=== PATIENT | male | born 1970 | race Caucasian/White ===

== ENCOUNTER → 2017-07-14 | Outpatient (CLI) | payer OTHER ==
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
== END | disposition home or self-care (01) ==
LOC: SLEEP 10:55
PROVIDERS: ATTEND Internal Medicine
DX: G47.33 Obstructive sleep apnea (adult) (pediatric) (principal); E66.9 Obesity, unspecified; I10 Essential (primary) hypertension; E78.5 Hyperlipidemia, unspecified; Z98.890 Other specified postprocedural states; Z98.41 Cataract extraction status, right eye; Z98.42 Cataract extraction status, left eye; Z87.828 Personal history of other (healed) physical injury and trauma; Z68.33 Body mass index [BMI] 33.0-33.9, adult; Z79.899 Other long term (current) drug therapy
CPT/HCPCS: 99201

== ENCOUNTER → 2017-11-17 | Outpatient (CLI) | payer OTHER ==
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
== END | disposition home or self-care (01) ==
LOC: SLEEP 14:02
PROVIDERS: ATTEND Internal Medicine
DX: G47.33 Obstructive sleep apnea (adult) (pediatric) (principal); E66.9 Obesity, unspecified; I10 Essential (primary) hypertension; E78.5 Hyperlipidemia, unspecified; Z99.89 Dependence on other enabling machines and devices; Z79.899 Other long term (current) drug therapy; Z90.49 Acquired absence of other specified parts of digestive tract; Z98.42 Cataract extraction status, left eye

== ENCOUNTER → 2018-11-02 | Outpatient (CLI) | payer OTHER ==
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
== END | disposition home or self-care (01) ==
LOC: SLEEP 14:16
PROVIDERS: ATTEND Internal Medicine
DX: G47.33 Obstructive sleep apnea (adult) (pediatric) (principal); I10 Essential (primary) hypertension; E66.9 Obesity, unspecified; E78.5 Hyperlipidemia, unspecified; Z79.899 Other long term (current) drug therapy; Z99.89 Dependence on other enabling machines and devices; Z98.42 Cataract extraction status, left eye; Z98.41 Cataract extraction status, right eye; Z68.33 Body mass index [BMI] 33.0-33.9, adult; Z87.828 Personal history of other (healed) physical injury and trauma

== ENCOUNTER → 2023-01-12 | Outpatient (CLI) | payer OTHER ==
--- NOTE | 2023-01-12 17:51 | P.SLEEP ---
History of Present Illness DATE: 01/12/2023 CONSULTATION/NEW PATIENT EVALUATION HISTORY OF PRESENT ILLNESS/SLEEP-WAKE EVALUATION: 52 year old gentleman had been evaluated in the sleep center for possible obstructive sleep apnea hypopnea syndrome. Patient has history of CVA obstructive sleep apnea hypopnea syndrome, diagnosed in our institution. Last time I so patient in the office in October 2018. Patient continued to use his CPAP equipment every night. I checked CPAP unit. CPAP pressure is 14 cm of water. Usage is 100% of nights, average 7 hours per night. Leak is 10.1 L/m which is in normal range. Apnea hypopnea index is 2.0, which is normal. SLEEP SCHEDULE: Usually sleep schedule from 10 PM to 5 AM 7 days a week. FALLING ASLEEP: No problems with falling asleep. DURING SLEEP: No snoring while patient using CPAP. No nocturia. No history of hypnogogical hallucinations, sleep paralysis, or cataplexy. DURING THE DAY/WAKE STATE: Patient denied any significant excessive daytime sleepiness. [place] sleepiness scale is 7, which is normal. Usually patient doesn't take naps. PAST MEDICAL HISTORY: Hypertension, hyperlipidemia. PAST SURGICAL HISTORY: Polypectomy from larynx. MEDICATIONS: Amlodipine 10 mg once a day, simvastatin 40 mg once a day, aspirin 81 mg once a day, metoprolol 50 mg once a day, valsartan-hydrochloro thiazide 320-25 mg once a day, Lopid 600 mg twice a day. SOCIAL HISTORY: Negative for smoking or using alcohol. FAMILY HISTORY: Hypertension, diabetes, sleep apnea. REVIEW OF SYSTEMS: No snoring while using CPAP. No fevers. No double vision. No recent chest pain. No shortness of breath. No abdominal pain. No bleeding episodes. No blood in urine. No seizure episodes. PHYSICAL EXAMINATION: GENERAL: A pleasant patient without any distress. VITAL SIGNS: BP 132/70 , HR 63 , RR 12 , weight 222.4 pounds, height 5 foot 7 inches, body mass index 34.7 . HEENT: PERRLA, EOMI. Evaluation of oropharynx showed tongue protrudes midline, low position of soft palate Mallampati 4. NECK: Supple. No JVD. Thyroid is not palpable. [] inches in circumference. LUNGS: Clear to percussion and to auscultation. Good air exchange. No wheezing or rhonchi. HEART: S1, S2 regular. No murmurs, gallops or rubs. ABDOMEN: Soft and nontender. Bowel sounds are present. No organomegaly appreciated. EXTREMITIES: No clubbing or cyanosis. CIGAR BANDER HAND: Awake, alert, and oriented x3. Cranial nerves 2 to 7 intact. There is no fasciculation or atrophy noted. No focal deficits observed. ASSESSMENT: 1. Severe obstructive sleep apnea hypopnea syndrome. Patient demonstrated great compliance with treatment. Normal respiration on treatment with CPAP. 2. Obesity, BMI 34.7. 3. Hypertension. 4. Hyperlipidemia. 5 status post polypectomy from larynx in the past. 6 . Status post bilateral cataract surgery in 2013. PLAN: 1. Patient will continue to use CPAP equipment every night for the whole night 2. CPAP/BiPAP titration if sleep study confirms obstructive sleep apnea- hypopnea syndrome. 3. Preferable position during sleep on the side. 4. No driving if patient feels any sleepiness. Patient is aware of civil and criminal liability for unsafe driving. 5. Sleep hygiene with regular sleep time for at least 7.5-8 hours. 6. Watching and losing weight. 7. Prescription for all necessary CPAP supplies including mask, tube filters. 8. Follow-up visit in 6 months. Thank you very much for referring this patient for consultation. Sincerely, Azael Carrion MD, PhD, FAASM. Diplomat of [employer] Board [employer] Medicine, Sleep Medicine Board by [employer] Special[employer] Board of [employer] Medicine [employer] Police Officer of [facility] [place] Sleep Note - Sleep Note Sleep Note: Temperature: Pulse Rate: Respiratory Rate: Blood Pressure: SpO2: Height: Weight: BMI: Neck Circumference:
== END ==
LOC: 3 N SLEEP 15:03
PROVIDERS: ATTEND Internal Medicine
DX: G47.33 Obstructive sleep apnea (adult) (pediatric) (principal); E66.9 Obesity, unspecified; I10 Essential (primary) hypertension; E78.5 Hyperlipidemia, unspecified; Z98.890 Other specified postprocedural states; Z68.34 Body mass index [BMI] 34.0-34.9, adult; Z99.89 Dependence on other enabling machines and devices; Z79.899 Other long term (current) drug therapy
CPT/HCPCS: 99202

== ENCOUNTER → 2023-08-17 | Outpatient (CLI) | payer OTHER ==
[2023-08-17 10:57] VITALS: BP 131/75; PULSE 57; RESP 16; TEMP 97.9
--- NOTE | 2023-08-17 11:25 | P.PN ---
Subjective DATE: 08/17/2023 FOLLOW UP VISIT. Patient with obstructive sleep apnea hypopnea syndrome return to sleep center for follow-up visit. Information from previous visit have been reviewed. Patient is using PAP equipment every night for the whole night, getting PAP supplies in time. The patient does not have significant problems with the mask, PAP unit and humidification. [place] sleepiness scale is 5 , which is normal. I checked information from PAP unit. PAP unit pressure 14 cm H2O. Usage is 100% for more then 4 hours, average 7.7 hours per night. Leak is 34 l/m, which is in acceptable range. Apnea Hypopnea Index is 1.5, which is normal. CPAP unit is old, legs of cover for air filter was broken. MEDICATIONS:1. Amlodipine 10 mg once a day 2. Simvastatin 80 mg once a day 3. Aspirin 81 mg once a day 4. Metoprolol 50 mg once a day 5. Valsartanhydrochlorothiazide 320-25 mg once a day 6. Gemfibrozil 600 mg twice a day During physical exam: GENERAL: A pleasant patient without any distress. VITAL SIGNS: Please see below. HEENT: PERRLA, EOMI.low position of soft palate, Mallapati 4 . NECK: Supple. No JVD. LUNGS: Clear to percussion and to auscultation. Good air exchange. No wheezing or rhonchi. HEART: S1, S2 regular. ABDOMEN: Soft and nontender. Slightly obese EXTREMITIES: No clubbing or cyanosis. INSPECTOR TUBES: Awake, alert, and oriented x3. No focal deficit. Impressions: 1. Obstructive sleep apnea-hypopnea syndrome. Patient demonstrated great compliance with treatment, benefiting from treatment. 2. Obesity, BMI 35.2, patient increased weight on 3 pounds comparing with previous visit. 3. Hypertension. 4. Hyperlipidemia. 5. Status post bilateral cataract surgery. 6. Status post polypectomy from larynx in the past. Plan: 1. Continue using PAP equipment every night for the whole night. 2. CPAP unit is old, cover for air filter is broken. Prescription to replace CPAP unit was written. 3. PAP unit should stay lower then position of the head. 4. Advised patient to remove all remaining water from humidifier canister daily and make it dry after each usage. Refill canister with fresh distilled water before each usage. 5. Sleep hygiene with regular time in bed for at least 8 hours. 6. Precautions related to driving. No driving if feel any sleepiness. 7. I will maintain prescription for PAP supplies including mask, tube, filters. 8. Follow up visit in 1-3 months after patient will receive new CPAP unit or earlier if patient has any problems. 9. Watching and losing weight. Thank you very much for allowing me to participate in the management of your patient. Azael Carrion MD, PhD, FAASM. Diplomat of [place] Board of Sleep Medicine, Sleep Medicine Board by [place] Board of Internal Medicine Tester/Lift Trucker of [facility] [place] Objective - Vital Signs Vital signs: Vital Signs Temp 97.9 F 08/17/23 10:49 Pulse 57 L 08/17/23 10:49 Resp 16 08/17/23 10:49 BP 131/75 08/17/23 10:49 Pulse Ox 97 08/17/23 10:49 FiO2 Intake & Output 08/16/23 08/17/23 08/17/23 18:59 06:59 18:59 Weight 102.058 kg
== END ==
LOC: 3 N SLEEP 09:58
PROVIDERS: ATTEND Internal Medicine
DX: G47.33 Obstructive sleep apnea (adult) (pediatric) (principal); E66.9 Obesity, unspecified; I10 Essential (primary) hypertension; E78.5 Hyperlipidemia, unspecified; Z98.41 Cataract extraction status, right eye; Z98.42 Cataract extraction status, left eye; Z98.890 Other specified postprocedural states; Z99.89 Dependence on other enabling machines and devices; Z68.35 Body mass index [BMI] 35.0-35.9, adult; Z86.010 Personal history of colon polyps; Z79.899 Other long term (current) drug therapy
CPT/HCPCS: 99212

== ENCOUNTER → 2023-10-19 | Outpatient (CLI) | payer OTHER ==
--- NOTE | 2023-10-19 15:18 | P.PROGSL ---
Subjective DATE: 10/19/2023 FOLLOW UP VISIT. Patient with obstructive sleep apnea hypopnea syndrome return to sleep center for follow-up visit. This is first visit after patient received new CPAP unit. Information from previous visit have been reviewed. Patient is using PAP equipment every night for the whole night, getting PAP supplies in time. The patient does not have significant problems with the mask, PAP unit and humidification. [place] sleepiness scale is 4, which is normal. I checked information from PAP unit. PAP unit pressure 14 cm H2O. Usage is 100% for more then 4 hours, average 7 hours per night. Leak is 20.7 l/m, which is in acceptable range. Apnea Hypopnea Index is 2.1, which is normal. MEDICATIONS: Please see below During physical exam: GENERAL: A pleasant patient without any distress. VITAL SIGNS: Please see below weight 220.2 pounds. HEENT: PERRLA, EOMI.low position of soft palate, Mallapati 4 . NECK: Supple. No JVD. LUNGS: Clear to percussion and to auscultation. Good air exchange. No wheezing or rhonchi. HEART: S1, S2 regular. ABDOMEN: Soft and nontender. Slightly obese EXTREMITIES: No clubbing or cyanosis. WAFER FABRICATION TECHNICIAN: Awake, alert, and oriented x3. No focal deficit. Impressions: 1. Obstructive sleep apnea-hypopnea syndrome. Patient demonstrated great compliance with treatment, benefiting from treatment. 2. Hypertension. 3. Obesity. 4. Hyperlipidemia. 5. Status post polypectomy from larynx in the past. 6. Status post bilateral cataract surgery. Plan: 1. Continue using PAP equipment every night for the whole night. 2. To change air filter at least 1-2 times per month. 3. PAP unit should stay lower then position of the head. 4. Advised patient to remove all remaining water from humidifier canister daily and make it dry after each usage. Refill canister with fresh distilled water before each usage. 5. Sleep hygiene with regular time in bed for at least 8 hours. 6. Precautions related to driving. No driving if feel any sleepiness. 7. I will maintain prescription for PAP supplies including mask, tube, filters. 8. Watching and losing weight. 9. Follow up visit in 6 months or earlier if patient has any problems. Thank you very much for allowing me to participate in the management of your patient. Azael Carrion MD, PhD, FAASM. Diplomat of [place] [employer] Medicine, Sleep Medicine Board by [place] [employer] Medicine Long Haul Truck Driver of [facility] [place] Objective - Vital Signs Vital Signs: Vital Signs Temp 98.0 F 10/19/23 14:57 Pulse 70 10/19/23 14:57 Resp 16 10/19/23 14:57 BP 136/68 10/19/23 14:57 Pulse Ox 96 10/19/23 14:57 FiO2 Home Medications: Home Medications Medication Instructions Recorded Confirmed Type Aspirin [Adult Low Dose Aspirin EC] 81 mg PO 08/17/23 History Metoprolol Succinate (ER) [Toprol 50 mg PO DAILY 08/17/23 08/17/23 History Xl] Simvastatin [Zocor] 80 mg PO 08/17/23 History Valsartan/Hydrochlorothiazide 320 mg PO DAILY 08/17/23 08/17/23 History [Valsartan-Hctz 320-25 mg Tab] amLODIPine [Norvasc] 10 mg PO DAILY 08/17/23 08/17/23 History gemfibroziL [Lopid] 600 mg PO DAILY 08/17/23 08/17/23 History
[2023-10-19 15:22] VITALS: BP 136/68; PULSE 70; RESP 16; TEMP 98
== END ==
LOC: 3 N SLEEP 14:42
PROVIDERS: ATTEND Internal Medicine
DX: G47.33 Obstructive sleep apnea (adult) (pediatric) (principal); I10 Essential (primary) hypertension; E66.9 Obesity, unspecified; E78.5 Hyperlipidemia, unspecified; Z98.890 Other specified postprocedural states; Z98.41 Cataract extraction status, right eye; Z98.42 Cataract extraction status, left eye; Z99.89 Dependence on other enabling machines and devices
CPT/HCPCS: 99212